=== PATIENT | male | born 1950 | race Caucasian/White ===

== ENCOUNTER 2018-05-19 08:03 | Outpatient (CLI) | payer MEDICARE, BC ==
--- NOTE | 2018-05-19 09:34 | ULT ---
ABDOMINAL AORTIC ULTRASOUND: History: Abdominal aortic aneurysm screening. Family history of abdominal aortic aneurysm. FINDINGS: Real-time imaging of the abdominal aorta shows a normal caliber aorta. Proximal aorta is partially ob scured. Mid aorta measures 1.9 cm and distally 1.6 cm. Right and left common iliac arteries are in th e 11-12 mm range. IMPRESSION: No evidence of aortic aneurysm. POS: [facility]
== END 2018-05-19 08:04 | disposition home or self-care (01) ==
LOC: SCSULT 08:03
PROVIDERS: ATTEND Family Medicine
DX: Z13.6 Encounter for screening for cardiovascular disorders (principal); Z82.49 Family history of ischemic heart disease and other diseases of the circulatory system
CPT/HCPCS: 76706

== ENCOUNTER 2018-11-19 07:51 | Outpatient (CLI) | payer MEDICARE, BC ==
--- NOTE | 2018-11-19 09:21 | BD ---
DEXA BONE DENSITY STUDY: Date: 11/19/18 HISTORY: Screening. FINDINGS: Lumbar Spine: BMD (g/cm2) L1 0.890 T-Score: -1.7 L2 0.855 T-Score: -2.2 L3 1.016 T-Score: -0.8 L4 1.069 T-Score: -0.2 Total 0.963 T-Score: -1.2 Left Femoral Neck: 0.706 T-Score: -1.7 Total Femur: 0.876 T-Score: -1.0 10 YEAR FRACTURE RISK: Major osteoporotic fracture: 6.5% Hip fracture: 1.5% IMPRESSION: Calculated bone mineral density meets WHO criteria for osteopenia and places the patient at increased risk for fracture. POS: [facility]
== END 2018-11-19 07:52 | disposition home or self-care (01) ==
LOC: BICMAMMO 07:51
PROVIDERS: ATTEND Family Medicine
DX: M81.0 Age-related osteoporosis without current pathological fracture (principal); M85.89 Other specified disorders of bone density and structure, multiple sites
CPT/HCPCS: 77080

== ENCOUNTER 2018-12-17 20:30 | Outpatient (CLI) | payer MEDICARE, BC | END 2018-12-17 20:31 | disposition home or self-care (01) | LOC: SLEEPLAB 20:30 | PROVIDERS: ATTEND Family Medicine | DX: G47.33 Obstructive sleep apnea (adult) (pediatric) (principal); R06.83 Snoring; I10 Essential (primary) hypertension; G47.31 Primary central sleep apnea | CPT/HCPCS: 95810 ==

== ENCOUNTER 2019-01-24 19:30 | Outpatient (CLI) | payer MEDICARE, BC | END 2019-01-24 19:31 | disposition home or self-care (01) | LOC: SLEEPLAB 19:30 | PROVIDERS: ATTEND Family Medicine | DX: G47.33 Obstructive sleep apnea (adult) (pediatric) (principal); I10 Essential (primary) hypertension; R06.83 Snoring; G47.63 Sleep related bruxism | CPT/HCPCS: 95811 ==

== ENCOUNTER 2019-05-19 08:22 | Outpatient (CLI) | payer OTHER ==
--- NOTE | 2019-05-19 17:55 | CT ---
CT CORONARY ARTERY CALCIUM SCORE: 05/19/19 HISTORY: Hyperlipidemia. FINDINGS: The coronary artery calcium score is as follows: Left main: 0 RCA: 455 LAD: 241 LCX: 190 Total: 886 No pleural or pericardial effusions are seen. The visualized lung pierre are clear. There are degener ative changes in the spine. There is a hemangioma involving the T9 vertebral body. IMPRESSION: Total coronary artery calcium score is 886. Extensive atherosclerotic plaque. High likelihood for at least one significant coronary narrowing. POS: [facility]
== END 2019-05-19 08:23 | disposition home or self-care (01) ==
LOC: BICCT 08:22
PROVIDERS: ATTEND Family Medicine
DX: E78.5 Hyperlipidemia, unspecified (principal); I25.10 Atherosclerotic heart disease of native coronary artery without angina pectoris
CPT/HCPCS: 75571

== ENCOUNTER 2020-11-30 12:00 | Outpatient (CLI) | payer MEDICARE, BC ==
[2020-11-30 13:04] LABS: Bilirubin Neg (Negative); Blood, Urine Negative (Negative); Clarity Slightly Cloudy (Clear); Glucose, Urine (Dipstick) Normal (Negative); Ketone, Urine 5 mg/dL (Negative); Leukocyte Negative (Negative); Nitrite Negative (Negative); Protein, Urine (Dipstick) Negative (Neg-Trace); Specific Gravity, Urine 1.025 (1.002-1.036); Urobilinogen Normal mg/dL (Less than 2)
[2020-11-30 13:16] LABS: Bacteria/HPF None Seen HPF (None Seen); Mucous/LPF 1+ LPF (<2+); RBC/HPF 0-3 HPF (0-3); Squamous Epithelial 0-3 HPF (0-3); WBC/HPF 0-3 HPF (0-3)
[2020-11-30 13:17] LABS: Hemoglobin 13.7 g/dL (13.5-17.5); Mean Corpuscular HGB CONC 33.3 g/dL (32.0-36.0); Mean Platelet Volume 12.4 fl (7.4-10.4); Platelet Count 178 10x3/uL (150-450); RBC Distribution Width 11.8 % (11.5-14.5); Red Blood Cell (RBC) Count 4.28 10x6/uL (4.32-5.72)
[2020-11-30 13:25] LABS: Anion Gap 11 mmol/L (10-20); BUN (Urea Nitrogen) 30 mg/dL (8.4-25.7); Calc. Creatinine Clearance 0 mL/min (70-130); Calcium 9.6 mg/dL (7.8-10.44); Carbon Dioxide 29 mmol/L (23-31); Chloride 106 mmol/L (98-107); Glucose 85 mg/dL (83-110); Potassium 4.7 mmol/L (3.5-5.1); Sodium 141 mmol/L (136-145)
[2020-11-30 13:29] LABS: INR-International Normal Ratio 0.9; PTT 30.2 sec (22.0-33.0); Prothrombin Time 10.3 sec (9.5-12.1)
[2020-12-01 13:56] LABS: SARS-CoV-2 PCR by NAA Not Detected (NotDetected)
== END 2020-11-30 12:01 | disposition home or self-care (01) ==
LOC: LABBT 12:00
PROVIDERS: ATTEND Urology
DX: Z01.818 Encounter for other preprocedural examination (principal); N40.1 Benign prostatic hyperplasia with lower urinary tract symptoms; Z20.822 Contact with and (suspected) exposure to COVID-19
CPT/HCPCS: 80048; 81001; 85027; 85610; 85730; 87086; 93005; U0003; U0005; 93010

== ENCOUNTER 2020-12-05 09:33 | Observation (INO) | payer MEDICARE, BC ==
[2020-12-04 12:06] VITALS: BMI 23.0
[2020-12-05] MEDS ORDERED: Levofloxacin 500 mg/D5W 100 ml Premix Bag ONE (11:46)
[2020-12-05] MEDS ORDERED: Fentanyl 100 MCG/2 ML VIAL ONE ×2 (12:00→14:33)
[2020-12-05] MEDS ORDERED: Famotidine/PF 20 mg/2ml Vial ONE (12:00)
[2020-12-05] MEDS ORDERED: Metoclopramide HCl 10 MG/2 ML VIAL ONE (12:25)
[2020-12-05] MEDS ORDERED: Ondansetron PF 4 MG/2 ML Vial ONE (12:25)
[2020-12-05] MEDS ORDERED: PROPOFOL 200 MG/20 ML VIAL ONE (12:25)
[2020-12-05] MEDS ORDERED: Dexamethasone 20 MG/5 ML VIAL ONE (12:25)
[2020-12-05] MEDS ORDERED: Lidocaine 1% PF 5 ML VIAL ONE (12:25)
[2020-12-05] MEDS ORDERED: Ondansetron HCl/PF 4 MG/2 ML Vial IVP PRN (13:59)
[2020-12-05] MEDS ORDERED: Mag-Al 1200 mg/1200 mg/30 ML UDCUP PO PRN (14:00)
[2020-12-05] MEDS ORDERED: Phenazopyridine HCl 97.5 MG TABLET PO PRN (14:00)
[2020-12-05] MEDS ORDERED: diphenhydrAMINE 50 MG/ML VIAL IVP PRN (14:00)
[2020-12-05] MEDS ORDERED: Oxybutynin 5 MG TAB PO PRN (14:00)
[2020-12-05] MEDS ORDERED: Morphine 4 MG/ML VIAL SLOW IVP PRN (14:00)
[2020-12-05] MEDS ORDERED: hydrALAZINE 20 MG/ML VIAL SLOW IVP PRN ×2 (14:00)
[2020-12-05] MEDS ORDERED: HYDROcodone/Acetaminophen 5/325 mg Tablet PO PRN ×2 (14:00)
[2020-12-05] MEDS ORDERED: Zolpidem Tartrate 5 MG TAB PO PRN (14:00)
[2020-12-05] MEDS ORDERED: Ondansetron PF 4 MG/2 ML Vial IVP PRN (14:00)
[2020-12-05] MEDS ORDERED: Morphine 2 MG/ML VIAL SLOW IVP PRN (14:00)
[2020-12-05 14:54] LABS: #Eosinphils 0.1 thou/uL (0.0-0.7); #Lymphocytes 1.2 thou/uL (1.20-3.40); #Monocytes 0.5 thou/uL (0.11-0.59); #Neutrophils 7.6 thou/uL (1.40-6.50); %Basophils 0.2 % (0.0-1.0); %Eosinophils 0.7 % (0.0-10.0); %Lymphocytes 12.6 % (21.0-51.0); %Neutrophils 81.6 % (42.0-75.0); Hemoglobin 12.8 g/dL (14.0-18.0); Mean Corpuscular HGB CONC 35.1 g/dL (32.0-36.0); Mean Corpuscular Volume 96.9 fL (78.0-98.0); Mean Platelet Volume 9.6 fL (7.4-10.4); Platelet Count 139 thou/uL (130-400); RBC Distribution Width 10.8 % (11.5-14.5); Red Blood Cell (RBC) Count 3.76 mill/uL (4.70-6.10); White Blood Cell (WBC) Count 9.3 thou/uL (4.8-10.8)
[2020-12-05 15:18] LABS: Anion Gap 10 mmol/L (10-20); BUN (Urea Nitrogen) 16 mg/dL (8.4-25.7); Calc. Creatinine Clearance 93 mL/min (70-130); Calcium 8.6 mg/dL (7.8-10.44); Carbon Dioxide 28 mmol/L (23-31); Chloride 106 mmol/L (98-107); Glucose 107 mg/dL (83-110); Potassium 4.6 mmol/L (3.5-5.1); Sodium 139 mmol/L (136-145)
[2020-12-05] MEDS: Sodium Chloride 0.9% 1,000 ML IV SCH ×2 (19:56→21:19)
[2020-12-05] MEDS ORDERED: Losartan 25 MG TAB PO SCH (21:00)
[2020-12-05] MEDS ORDERED: Atorvastatin Calcium 10 MG TAB PO SCH (21:00)
[2020-12-05] MEDS: Famotidine/PF 20 mg/2ml Vial SLOW IVP SCH (21:08)
[2020-12-05] MEDS: Docusate 100 MG CAP PO SCH (21:09)
[2020-12-06] MEDS ORDERED: Levothyroxine Sodium 100 MCG TAB PO SCH (06:00)
[2020-12-06 06:39] LABS: #Neutrophils 9.9 thou/uL (1.40-6.50); %Basophils 0.2 % (0.0-1.0); %Lymphocytes 8.5 % (21.0-51.0); %Monocytes 8.5 % (0.0-10.0); %Neutrophils 82.8 % (42.0-75.0); Mean Corpuscular Hemoglobin 32.2 pg (27.0-31.0); Mean Corpuscular Volume 97.4 fL (78.0-98.0); Mean Platelet Volume 9.9 fL (7.4-10.4); Platelet Count 170 thou/uL (130-400); RBC Distribution Width 10.7 % (11.5-14.5); Red Blood Cell (RBC) Count 4.05 mill/uL (4.70-6.10)
[2020-12-06] MEDS: Sodium Chloride 0.9% 1,000 ML IV SCH (06:40)
[2020-12-06 07:03] LABS: Anion Gap 8 mmol/L (10-20); BUN (Urea Nitrogen) 18 mg/dL (8.4-25.7); Calc. Creatinine Clearance 90 mL/min (70-130); Calcium 8.9 mg/dL (7.8-10.44); Carbon Dioxide 29 mmol/L (23-31); Chloride 105 mmol/L (98-107); Glucose 110 mg/dL (83-110); Potassium 4.4 mmol/L (3.5-5.1); Sodium 138 mmol/L (136-145)
[2020-12-06 08:18] VITALS: TEMP 98.1
[2020-12-06] MEDS: Docusate 100 MG CAP PO SCH (08:39)
[2020-12-06] MEDS: Famotidine/PF 20 mg/2ml Vial SLOW IVP SCH (08:40)
[2020-12-06] MEDS ORDERED: Tamsulosin HCl 0.4 MG CAP PO SCH (09:00)
[2020-12-06] MEDS ORDERED: TESTOSTERONE TOP SCH (09:00)
[2020-12-06] MEDS ORDERED: Cholecalciferol 1,000 UNITS (25 MCG) TAB PO SCH (09:00)
[2020-12-06] MEDS ORDERED: Multivit, Therapeutic 1 TAB PO SCH (09:00)
[2020-12-06 12:49] VITALS: BP 174/68
== END 2020-12-06 14:32 | disposition home or self-care (01) ==
LOC: SDC 09:33 → SJJU 17:30
PROVIDERS: ADMIT Urology; ATTEND Urology
PROC: 0VT08ZZ Resection of Prostate, Via Natural or Artificial Opening Endoscopic (ICD-10-PCS; principal; 2020-12-05)
DX: N40.1 Benign prostatic hyperplasia with lower urinary tract symptoms (principal); N13.8 Other obstructive and reflux uropathy; R35.1 Nocturia; N35.912 Unspecified bulbous urethral stricture, male; N48.6 Induration penis plastica; N52.9 Male erectile dysfunction, unspecified; I10 Essential (primary) hypertension; E78.5 Hyperlipidemia, unspecified; E03.9 Hypothyroidism, unspecified; J30.2 Other seasonal allergic rhinitis; M81.0 Age-related osteoporosis without current pathological fracture; Z79.82 Long term (current) use of aspirin; Z79.899 Other long term (current) drug therapy; Z88.0 Allergy status to penicillin; Z88.8 Allergy status to other drugs, medicaments and biological substances; Z98.890 Other specified postprocedural states
CPT/HCPCS: 36415; 80048; 85025; 88305; 96365; 96375; 96376; G0378; J1100; J1200; J1956; J2405; J2704; J2765; J3010; J7050; S0028

== ENCOUNTER 2023-08-17 06:12 | Day surgery (SDC) | payer MEDICARE ==
[2023-08-13 10:20] VITALS: BMI 23.0
[2023-08-17] MEDS ORDERED: EPINEPHrine 1 MG/ML VIAL ONE (06:47)
[2023-08-17] MEDS ORDERED: Ophthalmic Irrigation Solution 0 ML ONE (06:47)
[2023-08-17] MEDS ORDERED: Bupivacaine 0.25% HCL 30 ML VIAL ONE (06:48)
[2023-08-17] MEDS ORDERED: Bacitracin Zinc Ointment 30 gm TUBE ONE ×2 (06:48→06:55)
[2023-08-17] MEDS ORDERED: Heparin 5,000 UNITS/ML VIAL ONE (07:07)
[2023-08-17] MEDS ORDERED: PROPOFOL 20 ML ONE (07:14)
[2023-08-17] MEDS ORDERED: Ondansetron PF 4 MG/2 ML Vial ONE (07:14)
[2023-08-17] MEDS ORDERED: Lidocaine 1% PF 5 ML VIAL ONE (07:14)
[2023-08-17] MEDS ORDERED: CEFAZOLIN 2 GM VIAL ONE (07:27)
[2023-08-17] MEDS ORDERED: Sodium Chloride 0.9% 100 ML ONE (07:27)
[2023-08-17] MEDS ORDERED: fentaNYL PF 100 MCG/2 ML SYRINGE ONE (07:47)
[2023-08-17] MEDS ORDERED: ePHEDrine Sulfate 50 MG/10 ML VIAL ONE (08:04)
== END 2023-08-17 10:33 | disposition home or self-care (01) ==
LOC: SDC 06:12
PROVIDERS: ATTEND Plastic Surgery
PROC: 0HR1X73 Replacement of Face Skin with Autologous Tissue Substitute, Full Thickness, External Approach (ICD-10-PCS; principal; 2023-08-17)
DX: D03.39 Melanoma in situ of other parts of face (principal); I10 Essential (primary) hypertension; E78.5 Hyperlipidemia, unspecified; E03.9 Hypothyroidism, unspecified; Z90.89 Acquired absence of other organs; Z88.0 Allergy status to penicillin; Z79.82 Long term (current) use of aspirin; Z79.890 Hormone replacement therapy; Z79.899 Other long term (current) drug therapy
CPT/HCPCS: 11646; 15260; J0171; 88305; J0665; J1644; J2405; J2704; J3490